=== PATIENT | male | born 1975 | race Two or more races ===

== ENCOUNTER → 2022-12-04 07:18 | Outpatient (CLI) | payer OTHER | END | disposition home or self-care (01) | LOC: LAB 07:18 | PROVIDERS: ATTEND Internal Medicine | DX: E78.2 Mixed hyperlipidemia (principal); E16.2 Hypoglycemia, unspecified; E55.9 Vitamin D deficiency, unspecified; R73.03 Prediabetes; E03.8 Other specified hypothyroidism; N40.0 Benign prostatic hyperplasia without lower urinary tract symptoms; D64.9 Anemia, unspecified; A64 Unspecified sexually transmitted disease; I20.9 Angina pectoris, unspecified ==

== ENCOUNTER → 2023-04-19 09:31 | Outpatient (CLI) | payer OTHER | END | disposition home or self-care (01) | LOC: LAB 09:31 | PROVIDERS: ATTEND Specialist | DX: E55.9 Vitamin D deficiency, unspecified (principal) ==

== ENCOUNTER → 2023-11-06 06:33 | Outpatient (CLI) | payer OTHER ==
[2023-11-06 07:54] LABS: URINE APPEARANCE Clear; URINE BILIRRUBIN Negative (NEGATIVE); URINE BLOOD Negative; URINE COLOR Yellow; URINE GLUCOSE Negative (NEGATIVE); URINE LEUKOCYTE Negative; URINE NITRATE Negative; URINE PROTEIN Negative (NEGATIVE); URINE UROBILINOGEN 0.2 E.U./dl
[2023-11-06 07:58] LABS: HEMATOCRIT 39.8 % (39.0-48.0); HEMOGLOBIN 13.6 g/dL (13-16.00); MEAN CELL VOLUME 83.9 fL (80.0-100.00); MEAN CORPUSCULAR HEMOGLOBIN 28.7 pg (27.00-32.0); MEAN CORPUSCULAR HGB CONC 34.2 g/dl (32.0-36.0); PLATELET COUNT 229 K/uL (150-450); RED BLOOD COUNT 4.75 M/uL (4.00-6.00); RED CELL DISTRIBUTION WIDTH 13.6 % (11.5-14.5)
[2023-11-06 07:58] LABS: URINE EPITHELIAL CELLS 2.3 uL (0.0-38.8); URINE WBC 2.4 uL (0.0-23.2)
[2023-11-06 08:02] LABS: URINE BACTERIA 2.5 uL (0.0-1933); URINE RBC 1.1 uL (0.0-20.8)
[2023-11-06 08:47] LABS: BILIRUBIN TOTAL 0.49 mg/dL (0.3-1.2); CALCIUM 9.9 mg/dL (8.5-10.1); CHOL HDL RATIO 4.8 (0-5.0); CREATININE SERUM 0.92 mg/dL (0.70-1.30); GFR 88.18; GLOBULINA 3.5 G/DL (2.4-3.5); POTASSIUM 4.06 mEq/L (3.5-5.1); PROSTATIC SPECIFIC ANTIGEN 0.545 NG/ML (0.010-4.00); T4 TOTAL 8.38 UG/DL (4.5-12.1); TOTAL PROTEIN 7.5 gm/dL (6.4-8.2); TSH 3.32 uIU/mL (0.358-3.74)
[2023-11-06 09:14] LABS: ob NEGATIVE (NEGATIVE)
[2023-11-07 12:08] LABS: hav igm Negative (Negative); hcv Non Reactive (Non Reactive); hep b c Negative (Negative)
== END | disposition home or self-care (01) ==
LOC: LAB 06:33
PROVIDERS: ATTEND Specialist
DX: E11.9 Type 2 diabetes mellitus without complications (principal); E78.5 Hyperlipidemia, unspecified; E03.9 Hypothyroidism, unspecified; Z12.11 Encounter for screening for malignant neoplasm of colon; N28.9 Disorder of kidney and ureter, unspecified; D68.9 Coagulation defect, unspecified; N40.1 Benign prostatic hyperplasia with lower urinary tract symptoms; I10 Essential (primary) hypertension

== ENCOUNTER → 2024-04-02 07:29 | Outpatient (CLI) | payer OTHER ==
[2024-04-02 08:28] LABS: HEMATOCRIT 39.8 % (39.0-48.0); HEMOGLOBIN 13.9 g/dL (13-16.00); MEAN CELL VOLUME 84.1 fL (80.0-100.00); MEAN CORPUSCULAR HEMOGLOBIN 29.3 pg (27.00-32.0); MEAN CORPUSCULAR HGB CONC 34.8 g/dl (32.0-36.0); PLATELET COUNT 253 K/uL (150-450); RED BLOOD COUNT 4.73 M/uL (4.00-6.00); RED CELL DISTRIBUTION WIDTH 13.6 % (11.5-14.5)
[2024-04-02 08:41] LABS: ERYTHROCYTE SEDIMENTATION RATE 9 mm/hr
[2024-04-02 08:51] LABS: URIC ACID 4.6 mg/dL (3.5-8.5)
[2024-04-02 08:55] LABS: C-REACTIVE PROTEIN < 0.29 MG/DL (0.00-0.29)
== END | disposition home or self-care (01) ==
LOC: LAB 07:29
PROVIDERS: ATTEND Specialist
DX: M10.9 Gout, unspecified (principal); M19.90 Unspecified osteoarthritis, unspecified site

== ENCOUNTER 2024-04-02 08:07 | Outpatient (CLI) | payer OTHER | END 2024-04-02 08:13 | disposition home or self-care (01) | LOC: RAD 08:07 | PROVIDERS: ATTEND Specialist | DX: M19.90 Unspecified osteoarthritis, unspecified site (principal); M10.9 Gout, unspecified ==

== ENCOUNTER 2024-10-18 06:39 | Outpatient (CLI) | payer OTHER ==
[2024-10-18 07:10] LABS: URINE APPEARANCE Clear; URINE BILIRRUBIN Negative (NEGATIVE); URINE BLOOD Negative; URINE COLOR Yellow; URINE GLUCOSE Negative (NEGATIVE); URINE KETONE Negative (NEGATIVE); URINE LEUKOCYTE Negative; URINE NITRATE Negative; URINE PROTEIN Negative (NEGATIVE); URINE UROBILINOGEN 0.2 E.U./dl
[2024-10-18 07:13] LABS: URINE BACTERIA 15.9 uL (0.0-1933); URINE EPITHELIAL CELLS 2.2 uL (0.0-38.8); URINE WBC 3.3 uL (0.0-23.2)
[2024-10-18 07:17] LABS: URINE RBC 0.5 uL (0.0-20.8)
[2024-10-18 07:37] LABS: HEMOGLOBIN 13.6 g/dL (13-16.00); MEAN CELL VOLUME 86.8 fL (80.0-100.00); MEAN CORPUSCULAR HEMOGLOBIN 28.8 pg (27.00-32.0); MEAN CORPUSCULAR HGB CONC 33.2 g/dl (32.0-36.0); PLATELET COUNT 249 K/uL (150-450); RED BLOOD COUNT 4.73 M/uL (4.00-6.00); RED CELL DISTRIBUTION WIDTH 13.1 % (11.5-14.5)
[2024-10-18 08:37] LABS: URINE PROT QUANT 24HR < 5.00 MG/DL
[2024-10-18 08:50] LABS: ALBUMIN 3.9 gm/dL (3.4-5.0); BILIRUBIN TOTAL 0.48 mg/dL (0.3-1.2); CALCIUM 9.7 mg/dL (8.5-10.1); CHOL HDL RATIO 3.9 (0-5.0); GFR 79.75; GLOBULINA 3.5 G/DL (2.4-3.5); POTASSIUM 4.26 mEq/L (3.5-5.1); PROSTATIC SPECIFIC ANTIGEN 0.543 NG/ML (0.010-4.00); T4 TOTAL 9.18 UG/DL (4.5-12.1); TOTAL PROTEIN 7.4 gm/dL (6.4-8.2); TSH 3.3 uIU/mL (0.358-3.74)
[2024-10-18 09:19] LABS: CREATINE CLEARANCE 102.7 ML/MIN (97-137)
== END 2024-10-18 06:40 | disposition home or self-care (01) ==
LOC: LAB 06:39
PROVIDERS: ATTEND Specialist
DX: E78.5 Hyperlipidemia, unspecified (principal); I10 Essential (primary) hypertension; E11.9 Type 2 diabetes mellitus without complications; E03.9 Hypothyroidism, unspecified; Z12.11 Encounter for screening for malignant neoplasm of colon; N28.9 Disorder of kidney and ureter, unspecified; D68.9 Coagulation defect, unspecified; N40.1 Benign prostatic hyperplasia with lower urinary tract symptoms

== ENCOUNTER → 2024-10-19 06:41 | Outpatient (CLI) | payer OTHER ==
[2024-10-19 07:39] LABS: ob NEGATIVE (NEGATIVE)
== END | disposition home or self-care (01) ==
LOC: LAB 06:41
PROVIDERS: ATTEND Specialist
DX: E78.5 Hyperlipidemia, unspecified (principal); E11.9 Type 2 diabetes mellitus without complications; I10 Essential (primary) hypertension; E03.9 Hypothyroidism, unspecified; Z12.11 Encounter for screening for malignant neoplasm of colon; N28.9 Disorder of kidney and ureter, unspecified; D68.9 Coagulation defect, unspecified; N40.1 Benign prostatic hyperplasia with lower urinary tract symptoms

== ENCOUNTER 2025-01-17 06:25 | Outpatient (CLI) | payer OTHER ==
[2025-01-17 08:07] LABS: CHOL HDL RATIO 4.7 (0-5.0)
== END 2025-01-17 06:29 | disposition home or self-care (01) ==
LOC: LAB 06:25
PROVIDERS: ATTEND Specialist
DX: E11.9 Type 2 diabetes mellitus without complications (principal); I10 Essential (primary) hypertension; E78.5 Hyperlipidemia, unspecified; E03.9 Hypothyroidism, unspecified; Z12.11 Encounter for screening for malignant neoplasm of colon; N28.9 Disorder of kidney and ureter, unspecified; D68.9 Coagulation defect, unspecified; N40.1 Benign prostatic hyperplasia with lower urinary tract symptoms